=== PATIENT | female | born 1935 | race African-American/Black ===

== ENCOUNTER → 2017-04-17 | Outpatient (CLI) | payer OTHER ==
[~2017-04-17] MED LIST: ADULT LOW DOSE81 MG PO; CLONIDINE; LISINOPRIL20 MG PO; POTASSIUM20; TOPROL XL50 MG PO
== END ==
LOC: RAD 01:23
DX: Z12.31 Encounter for screening mammogram for malignant neoplasm of breast (principal)

== ENCOUNTER → 2018-06-22 | Outpatient (CLI) | payer OTHER | LOC: RAD 14:12 | DX: Z12.31 Encounter for screening mammogram for malignant neoplasm of breast (principal) ==